=== PATIENT | male | born 1985 | race Caucasian/White ===

== ENCOUNTER 2016-11-22 14:45 | Emergency (ER) | payer BC, OTHER ==
[~2016-11-22] VITALS: Ht 182.9 cm; Wt 91.9 kg
[~2016-11-22 14:45] MED LIST: ACET-1256 PO
[2016-11-22 14:47] VITALS: TEMP 36.8; Ht 182.9 cm; Wt 91.9 kg
[2016-11-22] MEDS ORDERED: XYLOCAINE 1%/SOD BICARB 20 ML VIAL INFIL ONE (15:15)
[2016-11-22] MEDS ORDERED: DIPHTHERIA/TETANUS/PERTUSSIS 0.5 ML SYR/VIAL IM. ONE (15:15)
--- NOTE | 2016-11-22 15:17 | EMERGENCY ROOM VISIT NOTE ---
ED Visit Note First contact with patient: 14:50 CHIEF COMPLAINT: Left thumb laceration HISTORY OF PRESENT ILLNESS: This 30-year-old male patient presents to the emergency department ambulatory after cutting the left thumb with a knife at work just prior to arrival. The bleeding has not stopped. Denies weakness or numbness of the finger. The patient denies any pain. The patient denies any other injuries. The patient's Tetanus shot is possibly not up to date. REVIEW OF SYSTEMS: A 6 system review of systems was completed with positives and pertinent negatives listed in the HPI. 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 PHYSICAL EXAM: Vital Signs: Reviewed Nurse's notes, vital signs stable. GENERAL : This is a 30-year-old male, in no acute distress, well-developed, well- nourished. SKIN: There is a 3 cm long laceration on the dorsal aspect of the base of the left thumb. The edges gape apart with traction. There is no foreign material in the wound and it looks clean. There is mild bleeding. No deep structures such as tendons, bones, or nerves are seen in the base of the wound. Normal strength and movement of the finger. Capillary refill less than 2 seconds. Normal sensation to light and sharp touch. EMERGENCY DEPARTMENT COURSE: I examined the patient. Using sterile technique the wound was cleaned with Betadine. The area was sterilely draped. 3 ml of 1% buffered lidocaine was used to anesthetize the laceration on the thumb. Once the patient was numb, the wound was copiously irrigated under pressure with sterile saline. The wound was explored in a bloodless field after a blood pressure tourniquet was applied. The tendon sheath appear to be intact. I did not visualize any obvious tendon involvement. The laceration was repaired using 5 simple interrupted 4-0 nylon sutures with the wound edges being well approximated. The patient tolerated the procedure well. The bleeding stopped. The area was cleaned with sterile saline and dressed with bacitracin ointment and bandage. The patient was given Td immunization. The patient was discharged home in good condition. The patient was placed in a removable thumb spica splint. He did not feel that he can wear a metal splint at work. The patient did not have any obvious weakness, decreased range motion or obvious tendon involvement on inspection. The patient did not seem to have any obvious numbness. His sensation seemed to be intact to sharp. I am concerned that the patient may not be completely forthcoming with the exam as he does not want to be on limited duty or numbness work. The patient should follow-up with orthopedics with any persistent numbness, tingling, weakness or decreased range of motion Otherwise, he should have the sutures removed in 10-12 days DIAGNOSIS: Left thumb laceration DISCHARGE INSTRUCTIONS & TREATMENT: Keep wound clean and dry. Do not allow any crusting or dried blood to accumulate on sutures. If this occurs, use a 1:1 solution of hydrogen peroxide/water on a Q-tip to clean the wound. Use an antibiotic ointment for 3-4 days, then let wound dry. Suture removal in 10-12 days. Return sooner for any signs of infection (increasing redness, swelling, drainage). Ice and elevate for swelling and pain. Ibuprofen 600 mg every 6 hrs for pain. Keep covered when in sun until sutures removed then SPF 50 or higher for one year. Vitamin E oil if desired two weeks after suture removal for reduction of scar. Wear the splint to signal helper in healing over the next 10-12 days Follow up with orthopedics with any persistent numbness, trouble moving the finger Current/Historical Medications No Active Prescriptions or Reported Meds Allergies Coded Allergies: No Known Allergies (Unverified , 11/22/16) Vital Signs Date Time Temp Pulse Resp B/P Pulse Ox O2 Delivery O2 Flow Rate FiO2 11/22/16 16:13 70 20 134/76 99 11/22/16 14:47 36.8 68 18 128/74 96 Room Air Medications Administered Medications (Trade) Dose Ordered Sig/Davis Route Start Time Stop Time Status Last Admin Dose Admin Diphtheria/ Pertussis/Tetanus Vacc (Adacel Inj) 0.5 ml ONCE ONCE IM. 11/22/16 15:15 11/22/16 15:16 DC 11/22/16 15:14 0.5 ML Departure Information Impression Primary Impression: Laceration of finger Dispostion Home / Self-Care Condition GOOD Prescriptions No Active Prescriptions or Reported Meds Referrals No Doctor, Assigned (PCP) Ron Alston MD Patient Instructions ED Laceration All, [facility] Additional Instructions Keep wound clean and dry. Do not allow any crusting or dried blood to accumulate on sutures. If this occurs, use a 1:1 solution of hydrogen peroxide/ water on a Q-tip to clean the wound. Use an antibiotic ointment for 3-4 days, then let wound dry. Suture removal in 10-12 days. Return sooner for any signs of infection (increasing redness, swelling, drainage). Ice and elevate for swelling and pain. Ibuprofen 600 mg every 6 hrs for pain. Keep covered when in sun until sutures removed then SPF 50 or higher for one year. Vitamin E oil if desired two weeks after suture removal for reduction of scar. Wear the splint to signal helper in healing over the next 10-12 days Follow up with orthopedics with any persistent numbness, trouble moving the finger Problem Qualifiers Primary Impression: Laceration of finger Encounter type: initial encounter Qualified Codes: S61.219A - Laceration without foreign body of unspecified finger without damage to nail, initial encounter
[2016-11-22 16:13] VITALS: BP 134/76; PULSE 70; O2SAT 99
== END 2016-11-22 16:14 | disposition home or self-care (01) ==
LOC: C.EDB 14:46 → C.EDD 16:14
DX: S61.012A Laceration without foreign body of left thumb without damage to nail, initial encounter (principal); W26.0XXA Contact with knife, initial encounter; Y99.0 Civilian activity done for income or pay; Z23 Encounter for immunization

== ENCOUNTER 2016-12-04 09:52 | Emergency (ER) | payer OTHER ==
[~2016-12-04] VITALS: Ht 182.9 cm; Wt 101.7 kg
[2016-12-04 09:55] VITALS: BP 137/60; PULSE 64; TEMP 36.8; O2SAT 96; Ht 182.9 cm; Wt 101.7 kg
--- NOTE | 2016-12-04 10:24 | EMERGENCY ROOM VISIT NOTE ---
ED Visit Note First contact with patient: 10:02 CHIEF COMPLAINT: Suture removal This patient returns to the ED today for removal of sutures that were placed 12 days ago. There has been no swelling, redness, or drainage from the wound. The patient feels like the laceration is healing well. REVIEW OF SYSTEMS: Head: No headache, injury or neck pain. Skin: No rash, new lesions, or masses. General: No fever or chills, fatigue, loss of appetite , or significant recent weight gain or loss. PMH: The patient is healthy; there is no significant medical or surgical history. SOCIAL HISTORY: Patient lives at home. PHYSICAL EXAM: Vital Signs: Reviewed Nurse's notes. There is a sutured wound on the base of the dorsal aspect of the left thumb with no signs of infection. There is slight wound separation of the lateral edge of the wound, no bleeding or drainage noted. There is no erythema, swelling, or tenderness. EMERGENCY DEPARTMENT COURSE: The sutures were removed without any difficulty. The wound was cleansed with chlorhexidine and wrapped in a bandage. Current/Historical Medications No Active Prescriptions or Reported Meds Allergies Coded Allergies: No Known Allergies (Unverified , 12/04/16) Vital Signs Date Time Temp Pulse Resp B/P (MAP) Pulse Ox O2 Delivery O2 Flow Rate FiO2 12/04/16 09:55 36.8 64 18 137/60 96 Room Air Departure Information Impression Primary Impression: Encounter for removal of sutures Dispostion Home / Self-Care Condition GOOD Prescriptions No Active Prescriptions or Reported Meds Referrals No Doctor, Assigned (PCP) Patient Instructions ED Stap Removal No Complication, [facility] Additional Instructions Keep the wound covered with a Band-Aid or small dressing until the wound is fully healed. You may return to normal activities. You may apply vitamin E oil or scar cream to help prevent development of scar. Use sunscreen to the area for the next year to help prevent worsening scar. Follow-up with her PCP as needed.
== END 2016-12-04 10:31 | disposition home or self-care (01) ==
LOC: C.EDB 09:53
DX: Z48.02 Encounter for removal of sutures (principal)